=== PATIENT | female | born 1995 | race African-American/Black ===

== ENCOUNTER 2020-11-25 22:47 | Inpatient (IN) ==
[2020-11-26] MEDS ORDERED: LACTATED RINGERS 1,000 ML IV ONE (00:01)
[2020-11-26] MEDS ORDERED: MEPERIDINE 50 MG/1 ML VIAL IV PRN (00:40)
[2020-11-26] MEDS ORDERED: ONDANSETRON 4 MG/2 ML VIAL IV PRN (00:40)
[2020-11-26] MEDS ORDERED: ePHEDrine 50 MG/ML VIAL IV PRN (00:47)
[2020-11-26] MEDS ORDERED: CITRIC ACID/SODIUM CITRATE 30 ML UDCUP PO ONE (00:47)
[2020-11-26] MEDS ORDERED: ONDANSETRON 4 MG/2 ML VIAL IV ONE (00:47)
[2020-11-26] MEDS ORDERED: NALOXONE 0.4 MG/ML VIAL IV PRN (00:47)
[2020-11-26] MEDS ORDERED: FAMOTIDINE 20 MG/2 ML VIAL IV ONE (00:47)
[2020-11-26] MEDS ORDERED: hydrOXYzine HCL 25 MG/1 ML VIAL IM PRN (00:47)
[2020-11-26] MEDS ORDERED: PROMETHAZINE 25 MG/1 ML VIAL IM ONE (00:47)
[2020-11-26] MEDS ORDERED: diphenhydrAMINE 50 MG/1 ML VIAL IV PRN ×2 (00:47)
[2020-11-26] MEDS ORDERED: fentaNYL 2 MCG/ROPIV 0.2% EPID 100 ML EPIDURAL SCH (01:00)
[2020-11-26 01:23] LABS: Basophils % 0.3 % (0.0-0.8); Eosinophils % 0.2 % (0.00-10.9); Hematocrit 24.5 VOL% (35.7-47.0); Hemoglobin 8.2 GM/DL (12.0-16.0); Immature Granulocytes % 1.5 %; Immature Granulocytes Absolute 0.16 #; Lymphocytes # 1.5 10*3/uL (1.4-4.0); Lymphocytes % 13.8 % (21.3-54.2); Mean Corpuscular HGB Conc 33.5 GM/DL (32-36); Mean Corpuscular Volume 87.5 FL (87-102); Mean Platelet Volume 9.9 FL (9.6-12.0); Monocytes % 5.1 % (1.7-12.7); NRBC # 0.02 10*3/uL; Neutrophils % 79.1 % (38.7-73.9); Platelet Count 281 T/CUMM (130-400); Red Cell Distribution Width 14.6 % (9.3-17.3); White Blood Count 10.9 T/CUMM (4-12)
[2020-11-26 01:46] LABS: Albumin 2.4 G/DL (3.4-5.0); Bilirubin,Total 0.8 MG/DL (0.2-1.0); Calcium 8.5 MG/DL (8.5-10.1); Potassium 3.5 MMOL/L (3.5-5.1); Total Protein 6.2 G/DL (6.4-8.2)
[2020-11-26] MEDS: LACTATED RINGERS 1,000 ML IV SCH ×2 (01:54→04:43)
[2020-11-26 03:51] LABS: Bilirubin,Urine Negative (Negative); Blood, Urine Small mg/dL (Negative); Glucose,Urine (UA) Negative (Negative); Ketones,Urine 80 mg/dL (Negative); Mucus,Urine Moderate /LPF (Occasional); Nitrite,Urine Negative (Negative); Protein,Urine Negative; RBC,Urine 10 /HPF (0-4); Squamous Epithelial Cell,Urine Occasional /HPF (0-10); Urine Appearance CLEAR (Clear); Urine Color Yellow (Yellow); Urine Specific Gravity 1.015 (1.001-1.035); WBC,Urine 1 /HPF (0-6)
[2020-11-26] MEDS: OXYTOCIN/LR 20 UNIT/1,000 ML BAG IV SCH ×2 (07:18→14:14)
[2020-11-26] MEDS ORDERED: miSOPROStoL 200 MCG TABLET ONE (09:01)
[2020-11-26] MEDS ORDERED: TRANEXAMIC ACID 1,000 MG/10 ML VIAL ONE (09:01)
[2020-11-26] MEDS ORDERED: METHYLERGONOVINE 0.2 MG/1 ML AMP ONE (09:01)
[2020-11-26] MEDS ORDERED: CARBOPROST TROMETHAMINE 250 MCG/ML AMP IM ONE (09:02)
[2020-11-26] MEDS ORDERED: SODIUM CHLORIDE 0.9% 0 ML IV ONE (09:03)
[2020-11-26] MEDS ORDERED: METHYLERGONOVINE 0.2 MG/1 ML AMP IM STA (12:43)
[2020-11-26] MEDS ORDERED: LANOLIN 50% CREAM 0.3 OZ TUBE TOP PRN (12:49)
[2020-11-26] MEDS ORDERED: HYDROCORTISONE 2.5% RECTAL CREAM 30 GM TUBE TOP PRN (12:49)
[2020-11-26] MEDS ORDERED: BENZOCAINE 20%/MENTHOL 0.5% SPRAY 56 GM CAN TOP PRN (12:49)
[2020-11-26] MEDS ORDERED: ACETAMINOPHEN/CODEINE 300-30 MG TABLET PO PRN ×2 (12:49)
[2020-11-26] MEDS ORDERED: DOCUSATE/SENNA 50-8.6 MG TABLET PO PRN (12:49)
[2020-11-26] MEDS ORDERED: ACETAMINOPHEN 325 MG TABLET PO PRN (12:49)
[2020-11-26] MEDS ORDERED: BISACODYL 10 MG SUPP RECTAL PRN (12:49)
[2020-11-26] MEDS ORDERED: DIPH/TET/ACEL PERT BOOSTER VACCINE 0.5 ML VIAL IM ONE (12:49)
[2020-11-26] MEDS ORDERED: WITCH HAZEL PADS 100/JAR TOP PRN (12:49)
[2020-11-26 13:01] LABS: Cord Venous Blood HCO3 21.8 MMOL/L; Cord Venous Blood PCO2 48.3 MMHG; Cord Venous Blood PO2 26.1
[2020-11-26] MEDS: FERROUS SULFATE 325 MG TABLET PO SCH (20:07)
[2020-11-26] MEDS: IBUPROFEN 800 MG TABLET PO PRN (23:22)
[2020-11-27 05:35] LABS: Basophils % 0.2 % (0.0-0.8); Eosinophils # 0.1 10*3/uL (0.0-0.87); Eosinophils % 0.5 % (0.00-10.9); Hematocrit 24.6 VOL% (35.7-47.0); Immature Granulocytes % 1.3 %; Immature Granulocytes Absolute 0.16 #; Lymphocytes # 2.6 10*3/uL (1.4-4.0); Lymphocytes % 21.2 % (21.3-54.2); Mean Corpuscular HGB Conc 32.5 GM/DL (32-36); Mean Corpuscular Volume 88.8 FL (87-102); Mean Platelet Volume 10.2 FL (9.6-12.0); Monocytes % 7.9 % (1.7-12.7); Neutrophils % 68.9 % (38.7-73.9); Platelet Count 287 T/CUMM (130-400); Red Blood Count 2.77 MC/CUMM (3.8-5.5); Red Cell Distribution Width 14.7 % (9.3-17.3); White Blood Count 12.3 T/CUMM (4-12)
[2020-11-27] MEDS: MULTIVITAMIN (PRENATAL) TABLET PO SCH (09:41)
[2020-11-27] MEDS: FERROUS SULFATE 325 MG TABLET PO SCH ×2 (09:41→20:37)
[2020-11-27] MEDS: IBUPROFEN 800 MG TABLET PO PRN ×2 (10:55→21:52)
[2020-11-28 07:24] VITALS: BP 91/52
[2020-11-28] MEDS: FERROUS SULFATE 325 MG TABLET PO SCH (08:40)
[2020-11-28] MEDS: MULTIVITAMIN (PRENATAL) TABLET PO SCH (08:41)
[2020-11-28] MEDS ORDERED: DOCUSATE SODIUM 100 MG CAPSULE PO SCH (09:00)
[2020-11-28] MEDS: IBUPROFEN 800 MG TABLET PO PRN (11:16)
== END 2020-11-28 11:45 | disposition home or self-care (01) | DRG 560 ==
LOC: N.LDOUT 22:47 → N.LD 22:50 → N.OB 11-26 15:40
PROVIDERS: ADMIT Obstetrics & Gynecology; ATTEND Obstetrics & Gynecology